=== PATIENT | male | born 1990 | race Caucasian/White ===

== ENCOUNTER 2020-02-14 10:29 | Outpatient (CLI) | payer OTHER ==
[2020-02-14] MEDS ORDERED: LOPRESSOR 225 MG/TAB PO (11:14)
[2020-02-14] MEDS ORDERED: TOPROL XL100 MG PO (11:14)
[2020-02-14] MEDS ORDERED: TRICOR145 MG PO (11:15)
[2020-02-14] MEDS ORDERED: ZOLOFT 100MG100 MG PO (11:15)
[2020-02-14] MEDS ORDERED: ASPIRIN E.C. 8181 MG PO (11:16)
[2020-02-14] MEDS ORDERED: ATARAX 25MG25 MG/TAB PO (11:16)
[2020-02-14 11:17] VITALS: BP 125/81; PULSE 69; TEMP 98.4
[2020-02-14] MEDS ORDERED: CEPHALEXIN500 M1 PO (11:49)
[2020-02-14 12:15] VITALS: BP 120/68; PULSE 71
--- NOTE | 2020-02-14 12:20 | NUR ---
Pt is ambulatory to exit at this time. I reviewed fu, rx and dc instructions with patient. Pt denied questions at this time.
== END 2020-02-14 12:36 | disposition home or self-care (01) ==
LOC: COL.CAR 10:29
DX: I47.1 Supraventricular tachycardia (principal); I48.92 Unspecified atrial flutter; F41.9 Anxiety disorder, unspecified; I45.10 Unspecified right bundle-branch block; Z88.1 Allergy status to other antibiotic agents; Z79.82 Long term (current) use of aspirin; Z87.891 Personal history of nicotine dependence; Z80.1 Family history of malignant neoplasm of trachea, bronchus and lung; Z20.828 Contact with and (suspected) exposure to other viral communicable diseases